=== PATIENT | female | born 2000 | race Caucasian/White ===

== ENCOUNTER 2025-05-01 17:42 | Emergency (ER) | payer OTHER, SELFPAY ==
[2025-05-01 18:00] VITALS: BP 118/79; PULSE 104; RESP 16; TEMP 36.6; O2SAT 100
--- NOTE | 2025-05-01 18:12 | ED_ITS ---
HPI - URI/Sore Throat General Chief Complaint: Upper Respiratory Infection Stated Complaint: Sinus Infection Symptoms Time Seen by Provider: 05/01/25 18:00 Source: patient Mode of arrival: ambulatory Limitations: no limitations History of Present Illness HPI Narrative: 25-year-old female presents with complaint of fatigue, nasal congestion, sinus pressure, cough for 1 day. Patient concern for sinus infection. No chest pain or shortness of breath. Took 1 dose a of DayQuil. All systems reviewed and negative except as noted above. Related Data Home Medications ?Medication ?Instructions ?Recorded ?Confirmed ?Last Taken ?Type venlafaxine 75 mg capsule,extended mg PO 05/01/25 Unk nown History release 24 hr Allergies Allergy/AdvReac Type Severity Reaction Status Date / Time Penicillins Allergy Intermediate Rash Verified 05/01/25 18:00 PMFSH Comments At time of signature, agree with nursing past medical, surgical, social and family history. There is no relevant family history pertinent to the presenting complaint. Exam Narrative: GENERAL: This is a well-nourished, well-developed patient, in no apparent distress. HEAD: normocephalic, atraumatic. EYES: PERRL. Sclera clear/white. Vision is grossly intact. EARS: External ears normal, auditory canals clear and without drainage, TMs normal without perforation. Hearing grossly intact. NOSE: External nose normal with clear nasal drainage THROAT: Mucous membranes moist, posterior pharynx clear. NECK: Neck supple, non-tender without lymphadenopathy, masses or thyromegaly. CARDIOVASCULAR: Regular rate and rhythm without murmurs, gallops, or rubs. RESPIRATORY: Clear to auscultation. Breath sounds equal bilaterally. No wheezes, rales, or rhonchi. SKIN: warm, Dry, intact with no suspicious lesions or rash, good texture and turgor. NEURO: awake, alert, and oriented to person, place and time. There were no obvious focal neurologic abnormalities. EXTREMITIES: No joint tenderness, effusion, or edema noted. Course Course Level of Care: Express Care Visit Vital Signs Vital signs: Vital Signs Temperature 36.6 C 05/01/25 18:00 Pulse Rate 104 H 05/01/25 18:00 Respiratory Rate 16 05/01/25 18:00 Blood Pressure 118/79 05/01/25 18:00 Pulse Oximetry 100 05/01/25 18:00 Temperature 36.6 C 05/01/25 18:00 Pulse Rate 104 H 05/01/25 18:00 Respiratory Rate 16 05/01/25 18:00 Blood Pressure 118/79 05/01/25 18:00 Pulse Oximetry 100 05/01/25 18:00 Reviewed MDM - URI/Sore Throat MDM Narrative Medical decision making narrative: Positive rapid COVID. Recommend [id number] medications to treat viral symptoms. Patient is well-appearing, nontoxic. Lungs clear to auscultation. Differential Diagnosis Differential diagnosis: Likely upper respiratory infection, sinusitis, viral infection and other (COVID) Discharge Plan Discharge Clinical Impression: COVID-19 Patient Disposition: Home Condition: Stable Instructions: COVID-19 (Coronavirus Disease 2019) (ED) Additional Instructions: Your COVID test was positive today. COVID is a virus and symptoms may last 10-14 days. Taking [id number] medication to treat her symptoms such as DayQuil NyQuil cold and flu. Take as directed on packaging. Drink at least 64 oz of water a day. See your primary care physician if symptoms are not improving. Patient Language: [place] Prescriptions: No Action venlafaxine 75 mg capsule,extended release 24hr PO Follow-up/Referrals: PHYSICIAN,PERSONAL CONSULTANT [Primary Care Provider, Internal Medicine] Stand Alone Forms: Work/School Release IP Time of Disposition: 18:11
[2025-05-01 18:27] LABS: EDCOVIDSCREEN Positive (Negative); EDINFLUASCREEN Negative (Negative); EDINFLUBSCREEN Negative (Negative)
== END 2025-05-01 18:12 | disposition home or self-care (01) ==
PROVIDERS: Emergency Provider Nurse Practitioner Family
DX: U07.1 COVID-19 (principal)
CPT/HCPCS: 87426; 87804; 99212; G0463